=== PATIENT | male | born 1980 | race Caucasian/White ===

== ENCOUNTER → 2019-07-02 11:59 | Outpatient (BNVA) | payer MEDICARE, MEDICAID, SELFPAY | PROVIDERS: PCP Family Medicine; Visit Provider Nurse Practitioner | DX: F20.89 Other schizophrenia (principal); F42.4 Excoriation (skin-picking) disorder; F17.210 Nicotine dependence, cigarettes, uncomplicated | CPT/HCPCS: 80061; 83036; 99213 ==

== ENCOUNTER → 2019-10-01 08:28 | Outpatient (BNVA) | payer MEDICARE, MEDICAID, SELFPAY | PROVIDERS: PCP Family Medicine; Visit Provider Nurse Practitioner | DX: F20.89 Other schizophrenia (principal); F42.4 Excoriation (skin-picking) disorder; F17.210 Nicotine dependence, cigarettes, uncomplicated | CPT/HCPCS: 99213 ==

== ENCOUNTER → 2019-12-28 08:07 | Outpatient (BNVA) | payer MEDICARE, MEDICAID, SELFPAY | PROVIDERS: PCP Family Medicine; Visit Provider Psychiatry & Neurology Psychiatry | DX: F17.210 Nicotine dependence, cigarettes, uncomplicated (principal); F42.4 Excoriation (skin-picking) disorder; F20.89 Other schizophrenia; F41.1 Generalized anxiety disorder | CPT/HCPCS: 99213 ==

== ENCOUNTER → 2020-03-17 17:51 | Outpatient (BNVA) | payer MEDICARE, MEDICAID, SELFPAY | PROVIDERS: PCP Family Medicine; Visit Provider Nurse Practitioner Family | DX: Z20.828 Contact with and (suspected) exposure to other viral communicable diseases (principal) | CPT/HCPCS: 87635 ==

== ENCOUNTER → 2020-03-21 08:17 | Outpatient (BNVA) | payer MEDICARE, MEDICAID, SELFPAY | PROVIDERS: PCP Family Medicine; Visit Provider Nurse Practitioner | DX: F20.89 Other schizophrenia (principal); F42.4 Excoriation (skin-picking) disorder; F17.210 Nicotine dependence, cigarettes, uncomplicated | CPT/HCPCS: 99213 ==

== ENCOUNTER 2020-03-22 08:22 | Outpatient (CLI) | payer MEDICARE, MEDICAID, SELFPAY ==
--- NOTE | 2020-03-22 09:54 | PFTS_ITS ---
Date of Study:03/22/20 Date of Dictation: 03/23/2020 MECHANICS: Forced vital capacity (FVC) is normal Forced expiratory volume in one second (FEV1) is normal FEV1/FVC is normal FLOW VOLUME LOOP: Normal LUNG VOLUMES: Not measured DIFFUSING CAPACITY FOR CARBON MONOXIDE: Not measured . INTERPRETATION: The spirometry is normal MTDD
--- NOTE | 2020-03-22 10:03 | PFTS_ITS ---
Date of Study:03/22/20 Date of Dictation: MECHANICS: Forced vital capacity (FVC) is . Forced expiratory volume in one second (FEV1) is . FEV1/FVC is . FLOW VOLUME LOOP: . LUNG VOLUMES: Total lung capacity (TLC) is . Residual volume (RV) is . DIFFUSING CAPACITY FOR CARBON MONOXIDE: . INTERPRETATION: The pulmonary function tests are . mechanics and lung volumes. Gas exchange (DLCO) is . MTDD
== END 2020-03-22 08:23 | disposition home or self-care (01) ==
LOC: RT 08:24
PROVIDERS: PCP Nurse Practitioner Family; Visit Provider Nurse Practitioner Family
DX: J45.909 Unspecified asthma, uncomplicated (principal)
CPT/HCPCS: 94010

== ENCOUNTER → 2020-06-13 13:08 | Outpatient (BNVA) | payer MEDICARE, MEDICAID, SELFPAY | PROVIDERS: PCP Nurse Practitioner Family; Visit Provider Nurse Practitioner | DX: F42.4 Excoriation (skin-picking) disorder (principal); F20.89 Other schizophrenia; F17.210 Nicotine dependence, cigarettes, uncomplicated | CPT/HCPCS: 96372; 99213 ==

== ENCOUNTER → 2020-08-25 12:33 | Outpatient (BNVA) | payer MEDICARE, MEDICAID, SELFPAY | PROVIDERS: PCP Nurse Practitioner Family; Visit Provider Nurse Practitioner | DX: F42.4 Excoriation (skin-picking) disorder (principal); F20.89 Other schizophrenia; F17.210 Nicotine dependence, cigarettes, uncomplicated; Z79.899 Other long term (current) drug therapy | CPT/HCPCS: 80061; 83036; 96372; 99214 ==

== ENCOUNTER → 2020-11-21 11:44 | Outpatient (BNVA) | payer MEDICARE, MEDICAID, SELFPAY | PROVIDERS: PCP Nurse Practitioner Family; Visit Provider Nurse Practitioner | DX: F20.89 Other schizophrenia (principal); F17.210 Nicotine dependence, cigarettes, uncomplicated; F42.4 Excoriation (skin-picking) disorder; Z79.899 Other long term (current) drug therapy | CPT/HCPCS: 96372; 99214 ==

== ENCOUNTER → 2021-02-14 13:10 | Outpatient (BNVA) | payer MEDICARE, MEDICAID, SELFPAY | PROVIDERS: PCP Nurse Practitioner Family; Visit Provider Nurse Practitioner | DX: F20.89 Other schizophrenia (principal); F17.210 Nicotine dependence, cigarettes, uncomplicated | CPT/HCPCS: 96372; 99214 ==

== ENCOUNTER 2021-04-26 08:12 | Outpatient (CLI) | payer MEDICARE, MEDICAID, SELFPAY ==
--- NOTE | 2021-04-26 08:21 | XR_ITS ---
WS: [id number] Chest 2 views, 04/26/2021 Clinical Data: COUGH/TOBACCO USE Comparison: Portable chest, 12/27/2018. Findings: No nodules, masses or effusions are seen. The heart is normal. The pulmonary vascularity is not increased. No pneumonia or pneumothorax is seen. XR/XR chest 2V* [id number] Impression: Negative chest.
== END 2021-04-26 08:13 | disposition home or self-care (01) ==
LOC: RAD 08:19
PROVIDERS: PCP Nurse Practitioner Family; Visit Provider Nurse Practitioner Family
DX: R05.9 Cough, unspecified (principal); F17.200 Nicotine dependence, unspecified, uncomplicated
CPT/HCPCS: 71046

== ENCOUNTER → 2021-05-16 13:08 | Outpatient (BNVA) | payer MEDICARE, MEDICAID, SELFPAY | PROVIDERS: PCP Nurse Practitioner Family; Visit Provider Nurse Practitioner | DX: F17.210 Nicotine dependence, cigarettes, uncomplicated (principal); F20.89 Other schizophrenia | CPT/HCPCS: 96372; 99214 ==

== ENCOUNTER → 2021-08-14 14:02 | Outpatient (BNVA) | payer MEDICARE, MEDICAID, SELFPAY | PROVIDERS: PCP Nurse Practitioner Family; Visit Provider Nurse Practitioner | DX: F17.210 Nicotine dependence, cigarettes, uncomplicated (principal); F20.89 Other schizophrenia | CPT/HCPCS: 96372; 99214 ==

== ENCOUNTER → 2021-11-22 11:56 | Outpatient (BNVA) | payer MEDICARE, MEDICAID, SELFPAY | PROVIDERS: PCP Nurse Practitioner Family; Visit Provider Nurse Practitioner | DX: F17.210 Nicotine dependence, cigarettes, uncomplicated (principal); Z79.899 Other long term (current) drug therapy; F20.89 Other schizophrenia | CPT/HCPCS: 80061; 83036; 96372; 99214 ==

== ENCOUNTER → 2022-10-14 13:05 | Outpatient (BNVA) | payer MEDICARE, MEDICAID, SELFPAY | PROVIDERS: PCP Nurse Practitioner Family; Visit Provider Internal Medicine Pulmonary Disease | DX: F17.210 Nicotine dependence, cigarettes, uncomplicated (principal); J45.909 Unspecified asthma, uncomplicated | CPT/HCPCS: 80053; 82785; 85025; 86003; 99204 ==

== ENCOUNTER → 2022-10-22 14:10 | Outpatient (BNVA) | payer MEDICARE, MEDICAID, OTHER, SELFPAY | PROVIDERS: PCP Nurse Practitioner Family; Visit Provider Nurse Practitioner | DX: F20.89 Other schizophrenia (principal); Z79.899 Other long term (current) drug therapy; F42.4 Excoriation (skin-picking) disorder; F17.210 Nicotine dependence, cigarettes, uncomplicated | CPT/HCPCS: 80061; 83036 ==

== ENCOUNTER 2022-11-05 12:29 | Outpatient (CLI) | payer MEDICARE, MEDICAID, SELFPAY | END 2022-11-05 12:30 | disposition home or self-care (01) | PROVIDERS: PCP Nurse Practitioner Family; Visit Provider Internal Medicine Pulmonary Disease | DX: J45.909 Unspecified asthma, uncomplicated (principal); F17.210 Nicotine dependence, cigarettes, uncomplicated; R06.09 Other forms of dyspnea | CPT/HCPCS: 80053; 82785; 85025; 86003; 94010; 94618; 94726; 94729 ==

== ENCOUNTER 2023-11-19 10:43 | Emergency (ER) | payer MEDICARE, MEDICAID, SELFPAY ==
[2023-11-19 10:53] VITALS: BP 123/85; PULSE 109; TEMP 36.7; O2SAT 95; BMI 24.3
--- NOTE | 2023-11-19 11:13 | W.ED.SKABFB ---
HPI - Skin/Abscess/Foreign Bdy General: Chief complaint: Skin/Abscess/Foreign Body Stated complaint: itching, burning, possible scabbies Time Seen by Provider: 11/19/23 10:55 Source: patient Mode of arrival: ambulatory Limitations: no limitations History of Present Illness: 43-year-old male who states he has had rash to his hands and feet is quite pruritic in nature is here with another individual he has been staying with the same symptoms and believes he is has scabies. Denies any fevers denies any known bedbugs. Associated symptoms: Deny chills, fever(s), nausea or vomiting Review of Systems Const: Denies: fever(s), chills, body aches or change in appetite ENMT: Denies: throat pain or dental pain Card: Denies: chest pain Resp: Denies: dyspnea GI: Denies: abdominal pain, nausea, vomiting or diarrhea Musc: Denies: neck pain or back pain Skin/Breast: Reports: pruritus; Denies: rash PFSH ED PFSH: Medical History Psychiatric care On combination antipsychotic drug therapy Nicotine dependence, cigarettes, uncomplicated Excoriation (skin-picking) disorder Other schizophrenia Social History Smoking and tobacco/nicotine status: current every day tobacco/nicotine user cigarettes Packs smoked per day: 1 Years cigarettes smoked: 24 Quit status (tobacco/nicotine): considering quitting Second hand smoke exposure: No Alcohol intake: current Alcohol intake frequency: holidays/special occasions only Alcohol type: beer and wine Substance/Drug Use: never Physical Exam Const: COMMON NORMALS: no acute distress, patient oriented x3 and healthy appearing HENMT: COMMON NORMALS: normocephalic and atraumatic HEAD & SCALP: normocephalic and atraumatic Neck/C-Spine: COMMON NORMALS: full ROM and supple Chest: COMMONS NORMALS: normal inspection of the chest Resp: COMMON NORMALS: normal respiratory effort Cardio: COMMON NORMALS: regular rate, regular rhythm and No murmurs present (Cardio) RATE: regular rate RHYTHM: regular rhythm Extremity: COMMON NORMALS: normal to inspection Neuro: COMMON NORMALS: patient oriented x3, moves all extremities and no focal motor deficits Psych: COMMON NORMALS: mental status grossly normal, Normal thought process present and cooperative THOUGHT PROCESS: Normal thought process present Skin: COMMON NORMALS: no wounds NARRATIVE SKIN EXAM: Rash to hands and feet likely scabies Course Vital Signs: Vital signs: Vital Signs Temperature 98.1 F 11/19/23 10:53 Pulse Rate 109 H 11/19/23 10:53 Blood Pressure 123/85 11/19/23 10:53 Pulse Oximetry 95 11/19/23 10:53 Oxygen Delivery Me thod Room Air 11/19/23 10:53 MDM - Skin/Abscess/Foreign Bdy Medicial Decision Making Patient presents here with rashes likely scabies will prescribe permethrin follow-up PCP return if worsening understands agrees to plan Medical Records I reviewed the patient's medical records. No radiology studies performed this visit Discharge Plan Discharge Patient Disposition: Home Clinical Impression: Scabies Condition: Stable Prescriptions: New Elimite 5 % cream 1 applic topical Q14D Qty: 60 0RF Rx Instructions: apply second treatment 14 days after first treatment if live lice remain No Action albuterol sulfate 90 mcg/actuation HFA aerosol inhaler 2 puff INHALATION Q6H PRN simvastatin 20 mg tablet 40 mg PO DAILY pantoprazole 40 mg tablet,delayed release (DR/EC) 40 mg PO DAILY albuterol sulfate [Ventolin HFA] 90 mcg/actuation HFA aerosol inhaler 2 puff INHALATION Q6H PRN (Reason: sob) Qty: 8.5 6RF Invega Trinza 546 mg/1.75 mL syringe 546 mg IM .[id number] Qty: 1.75 0RF duloxetine 60 mg capsule,delayed release(DR/EC) See Rx Instructions .ROUTE .COMPLEX Qty: 60 2RF Dose Instruction: TAKE ONE CAPSULE BY MOUTH TWICE A DAY Rx Instructions: TAKE ONE CAPSULE BY MOUTH TWICE A DAY paliperidone [Invega] 6 mg tablet extended release 24hr See Rx Instructions .ROUTE .COMPLEX Qty: 30 2RF Dose Instruction: TAKE ONE TABLET BY MOUTH IN THE MORNING Rx Instructions: TAKE ONE TABLET BY MOUTH IN THE MORNING trazodone 100 mg tablet See Rx Instructions .ROUTE .COMPLEX Qty: 30 2RF Dose Instruction: TAKE 1/2 TO 1 TABLET AT BEDTIME Rx Instructions: TAKE 1/2 TO 1 TABLET AT BEDTIME fluticasone propion-salmeterol [Wixela Inhub] 100-50 mcg/dose blister with device 1 inh inhalation DAILY Qty: 60 3RF diazepam 5 mg tablet 5 mg PO BID PRN (Reason: anxiety) Qty: 60 0RF Discharge Orders: Discharge ED (Routine); Ordered 11/19/23 Ordered By: Meghna Haro Referrals: Rossana Crisostomo, [employer] LOADER OPERATOR [Primary Care Provider] - 4-7 days Discharge Diet: Advance as tolerated Discharge Activity: Resume usual activity Patient Instructions: Scabies (ED) Coding Level of Care Code ED Die Sinker Apprentice for Hardeep Jimenez
== END 2023-11-19 11:37 | disposition home or self-care (01) ==
PROVIDERS: Emergency Provider Emergency Medicine; PCP Nurse Practitioner Family
DX: B86 Scabies (principal); F17.210 Nicotine dependence, cigarettes, uncomplicated
CPT/HCPCS: 99283

== ENCOUNTER → 2023-12-08 11:54 | Outpatient (BNVA) | payer MEDICARE, OTHER, SELFPAY | PROVIDERS: PCP Nurse Practitioner Family; Visit Provider Nurse Practitioner | DX: F20.89 Other schizophrenia (principal); Z79.899 Other long term (current) drug therapy; F42.4 Excoriation (skin-picking) disorder | CPT/HCPCS: 80061; 83036 ==

== ENCOUNTER → 2025-01-07 09:44 | Outpatient (BNVA) | payer SELFPAY | PROVIDERS: PCP Nurse Practitioner Family; Visit Provider Nurse Practitioner Psychiatric/Mental Health | DX: Z79.899 Other long term (current) drug therapy (principal) | CPT/HCPCS: 80053; 80061; 83036 ==